=== PATIENT | male | born 1955 | race Caucasian/White ===

== ENCOUNTER 2018-01-02 11:44 | Emergency (ER) | payer OTHER, MEDICARE ==
[2018-01-02] MEDS ORDERED: BUMETANIDE2 M1 PO (12:38)
[2018-01-02] MEDS ORDERED: LISINOPRIL20 M1 PO (12:39)
[2018-01-02] MEDS ORDERED: SPIRONOLACTONE25 M1 PO (12:39)
[2018-01-02] MEDS ORDERED: DIGOXIN125 MCG PO (12:39)
[2018-01-02] MEDS ORDERED: CARVEDILOL25 M1 PO (12:40)
[2018-01-02] MEDS ORDERED: PREDNISONE5 M1 PO (12:40)
[2018-01-02] MEDS ORDERED: VENTOLIN HFA18 GM INH (12:41)
[2018-01-02] MEDS ORDERED: FLONASE ALLERG9.9 ML NAS (12:41)
[2018-01-02] MEDS ORDERED: SENNA8.6 M3 PO (12:42)
[2018-01-02] MEDS ORDERED: WARFARIN SODIUM5 M1 PO (12:42)
[2018-01-02] MEDS ORDERED: ULORIC40 M1 PO (12:42)
[2018-01-02] MEDS ORDERED: DOCUSATE SODIU100 M3 PO (12:43)
[2018-01-02] MEDS ORDERED: SYMBICORT 16010.2 GM INH (12:43)
[2018-01-02] MEDS ORDERED: DAILY MULTIPLE1 EACH PO (12:43)
--- NOTE | 2018-01-02 13:17 | ED GENERAL ADULT ---
History of Present Illness General Chief Complaint: Skin Rash/ Abcess Stated Complaint: BLISTERS ON LEG "THEY DECIDED TO EXPLODE" Source: patient, family Exam Limitations: no limitations Vital Signs & Intake/Output Vital Signs & Intake/Output Vital Signs Date Time Temp Pulse Resp B/P B/P Pulse O2 O2 Flow FiO2 Mean Ox Delivery Rate 01/02 1713 98.5 72 20 146/61 90 Room Air 01/02 1434 Room Air 01/02 1153 97.6 77 18 143/86 98 Room Air Allergies Coded Allergies: propofol (Severe, RASH 01/02/18) Reconcile Medications Albuterol Sulfate (Ventolin Hfa) 90 MCG HFA.AER.AD 2 PUF INH Q4-6 PRN PRN SHORTNESS OF BREATH (Reported) Budesonide/Formoterol Fumarate (Symbicort 160-4.5 Mcg Inhaler) 160 MCG-4.5 MCG/ ACTUATION HFA.AER.AD 2 PUF INH BID BREATHING PROBLEMS (Reported) Bumetanide 2 MG TABLET 1 TAB PO BID WATER RETENTION (Reported) Carvedilol 25 MG TABLET 1 TAB PO BID HEART (Reported) Clindamycin HCl (Cleocin HCl) 150 MG CAPSULE 3 CAP PO TID cellulitis Digoxin 125 MCG TABLET 1 TAB PO Q48 HEART (Reported) Docusate Sodium 100 MG CAPSULE 1 CAP PO BID CONSTIPATION (Reported) Febuxostat (Uloric) 40 MG TABLET 1 TAB PO DAILY GOUT (Reported) Fluticasone Propionate (Flonase Allergy Relief) 50 MCG/ACTUATION SPRAY.SUSP 1 SPRAY ESTELITA DAILY ALLERGIES (Reported) Lisinopril 20 MG TABLET 1 TAB PO DAILY HEART (Reported) Multivitamin (Daily Multiple Vitamin) 1 EACH TABLET 1 TAB PO DAILY VITAMIN SUPPORT (Reported) Prednisone 5 MG TABLET 1 TAB PO DAILY STEROID (Reported) Sennosides (Senna) 8.6 MG TABLET 2 TAB PO QPM CONSTIPATION (Reported) Spironolactone 25 MG TABLET 0.5 TAB PO DAILY WATER RETENTION (Reported) Warfarin Sodium 5 MG TABLET 1 TAB PO DAILY BLOOD THINNER (Reported) Triage Note: 62 YO MALE TO TRIAGE FOR EVAL OF NON-HEALING WOUNDS TO BILATERAL LEGS (L > R). REPORTS WAS ON OUTPATIENT ANTIBITOICS FOR CELLULITIS AND REPORTS WAS SUPPOSED TO F/U WITH PCP BUT PCP IS IN [place] AND THEY WERE UNABLE TO GET THERE, REPORTS MADE AN APPT WITH [facility] ON SATURDAY BUT REPORTS OVERNIGHT THE L WOUNDS "BURST" AND HAVE BEEN LEAKING CLEAR FLUID. AFEBRILE. Triage Nurses Notes Reviewed? yes Onset: Gradual Duration: week(s): Timing: constant HPI: 62-year-old male with a history of A. fib (on Coumadin), CHF, status post AICD placement, hypertension, hyperlipidemia, COPD, diabetes, CKD presenting with bilateral lower extremity wounds times 1 month, with L>R. Patient denies any direct trauma to the legs. States that he thinks he may have contracted poison betty that became infected. He was seen at an urgent care 2 weeks ago and started on clindamycin. States he was taking 300 mg 3 times daily times 7 days. He finished his course of antibiotics 1 week ago. He had mild improvement while on the antibiotics, but states the infection never completely resolved. Has had gradual worsening since he finished antibiotics. He has currently relocated to the area and his prior PMD was located and then very, states he has been unable to travel to [facility] for follow-up. Is currently in the process of establishing a PMD in the area. He also has an appointment with the wound center for Saturday, but presents to the emergency department today because he had 2 blisters on the left leg that opened up last night. Reports there was clear yellow drainage from the blisters. Denies fevers, nausea, vomiting. (Brooklyn Edouard) Past History Travel History Traveled to [place] past 21 day No Medical History Any Pertinent Medical History? see below for history Cardiovascular: AFIB, CHF, hypertension, hyperlipidemia, s/p AICD Respiratory: COPD Renal: chronic kidney disease Endocrine: diabetes Surgical History Surgical History: non-contributory Psychosocial History What is your primary language Egyptian Tobacco Use: Never used Family History Hx Contributory? No (Brooklyn Edouard) Review of Systems Review of Systems Constitutional: Reports: no symptoms. EENTM: Reports: no symptoms. Respiratory: Reports: no symptoms. Cardiovascular: Reports: no symptoms. GI: Reports: no symptoms. Genitourinary: Reports: no symptoms. Musculoskeletal: Reports: see HPI. Skin: Reports: see HPI. Neurological/Psychological: Reports: no symptoms. Hematologic/Endocrine: Reports: no symptoms. Immunologic/Allergic: Reports: no symptoms. All Other Systems: Reviewed and Negative (Brooklyn Edouard) Physical Exam Physical Exam General Appearance: well developed/nourished, no apparent distress, alert, awake Head: atraumatic, normal appearance Eyes: Bilateral: normal appearance. Neck: normal inspection Respiratory: normal breath sounds, lungs clear Cardiovascular: regular rate/rhythm Gastrointestinal: soft, non-tender Back: normal inspection Extremities: BLE edema and erythema with L > R. 2 open wounds to left leg. No purulent drainage. BLE are NV intacts. Able to bear weight and ambulate with a steady gait. Neurologic/Psych: awake, alert, oriented x 3, normal gait, normal mood/affect Core Measures ACS in differential dx? No CVA/TIA Diagnosis: No Sepsis Present: No Sepsis Focused Exam Completed? No (Brooklyn Edouard) Progress Differential Diagnoses I considered the following diagnoses in my evaluation of the patient: [ cellulitis vs abscess vs sepsis vs nec fasc vs DVT] Plan of Care: Orders Procedure Date/time Status Regular Diet 01/02 D Active PROTHROMBIN TIME 01/02 131 Complete LACTIC ACID 01/02 1315 Complete COMPREHENSIVE METABOLIC PANEL 01/02 131 Complete CBC WITHOUT DIFFERENTIAL 01/02 131 Complete Laboratory Tests 01/02/18 1615: Lactic Acid Cancelled 01/02/18 1429: PT 30.6 H, INR 2.78 H 01/02/18 1351: Anion Gap 5, Estimated GFR 41 L, BUN/Creatinine Ratio 25.3 H, Glucose 114 H, Lactic Acid 1.0, Calcium 8.5, Total Bilirubin 0.4, AST 28, ALT 44, Alkaline Phosphatase 39, Total Protein 6.0 L, Albumin 3.6, Globulin 2.4, Albumin/ Globulin Ratio 1.5, CBC w Diff NO MAN DIFF REQ, RBC 5.51, MCV 79.3 L, MCH 25.6 L, MCHC 32.3 L, RDW 21.5 H, MPV 8.6, Gran % 85.8 H, Lymphocytes % 7.0 L, Monocytes % 6.7, Eosinophils % 0.4, Basophils % 0.1, Absolute Granulocytes 7.7 H, Absolute Lymphocytes 0.6 L, Absolute Monocytes 0.6, Absolute Eosinophils 0, Absolute Basophils 0 US neg for DVT. Labs show normal WBC, but mild left shift. Also with kidney dysfunction. No priors for comparisons. Discussed with pt's nephrology office to comfirm this is his baseline kidney function. Last kidney function listed below: Dr. Jewell's office: Nov 2017 Creatinine 1.6 BUN 31 GFR 44 He is non toxic appearing with normal VS and no systemic symptoms. Given single dose IV clinda in ER. Will send home with appropriate dose of clinda for cellulitis (450mg TID), as he was under dosed by the urgent care. Wounds were debrided and dressed. Counseled on wound care and will follow up with the wound care clinic Saturday as scheduled. Given strict return precautions. Initial ED EKG: none (Brooklyn Edouard) Departure Departure Disposition: HOME OR SELF CARE Condition: Stable Clinical Impression Primary Impression: Cellulitis Referrals: Patient Has No Primary Care Dr (PCP/Family) Additional Instructions: Take clindamycin as prescribed. Follow up with the wound clinic on Saturday as scheduled. Return to the emergency department for any new or worsening symptoms. Departure Forms: Customer Survey General Discharge Information Prescriptions: Current Visit Scripts Clindamycin HCl (Cleocin HCl) 3 CAP PO TID #90 CAP (Brooklyn Edouard) PA/DAYCARE PROVIDER Co-Sign Statement Statement: ED Attending supervision documentation- [x] I saw and evaluated the patient. I have also reviewed all the pertinent lab results and diagnostic results. I agree with the findings and the plan of care as documented in the PA's/DAYCARE PROVIDER's documentation. [] I have reviewed the ED Record and agree with the PA's/DAYCARE PROVIDER's documentation. [] Additions or exceptions (if any) to the PAs/DAYCARE PROVIDER's note and plan are summarized below: [] (Zhou VEGA, Jorge) Critical Care Note Critical Care Note Critical Care Time: non-applicable (Brooklyn Edouard)
[2018-01-02 14:11] LABS: ABSOLUTE BASOPHIL COUNT 0 /CUMM (0.0-0.2); ABSOLUTE EOSINOPHIL COUNT 0 /CUMM (0.0-0.7); ABSOLUTE GRANULOCYTE CT 7.7 /CUMM (1.4-6.5); ABSOLUTE LYMPH COUNT 0.6 /CUMM (1.2-3.4); ABSOLUTE MONOCYTE COUNT 0.6 /CUMM (0.10-0.60); BASOPHIL % 0.1 % (0.0-2.0); EOSINOPHIL % 0.4 % (0-5); HEMATOCRIT 43.7 % (42-52); MEAN CORPUSCULAR HGB 25.6 PG (27.0-31.0); MEAN CORPUSCULAR HGB CONC 32.3 G/DL (33.0-37.0); MEAN CORPUSCULAR VOLUME 79.3 FL (80.0-94.0); MEAN PLATELET VOLUME 8.6 FL (7.4-10.4); PLATELET COUNT 193 /CUMM (130-400); RBC DISTRIBUTION WIDTH 21.5 % (11.5-14.5); RED BLOOD CELL CT 5.51 /CUMM (4.70-6.10)
[2018-01-02 14:29] LABS: GRANULOCYTE % 85.8 % (42.2-75.2)
[2018-01-02 14:49] LABS: PT 30.6 SEC (9.4-12.5)
--- NOTE | 2018-01-02 15:56 | ULTRASOUND REPORT ---
EXAMINATION: US TRIPLEX OF LOWER EXTREMITIES, BILATERAL CLINICAL INFORMATION: Edema. Swelling. Inflammation. Skin changes. Leg tenderness. Pitting edema. COMPARISON: None TECHNIQUE: Color-flow triplex imaging with spectral analysis and compression Doppler were performed on the lower extremities. FINDINGS: Respiratory variation, normal compression and augmented flow are noted throughout the lower extremities. The visualized common femoral vein, superficial femoral vein, profunda femoral vein, popliteal vein and midcalf peroneal and posterior tibial venous segments show no evidence of deep venous thrombosis. There is no Balderas's cyst. IMPRESSION: No evidence of deep venous thrombosis involving the bilateral lower extremities.
[2018-01-02] MEDS ORDERED: CLEOCIN HCL150 M1 PO (16:33)
[2018-01-02 17:13] VITALS: BP 146/61
== END 2018-01-02 17:14 ==
LOC: ERH 11:44
PROVIDERS: Physician Assistant
DX: L03.115 Cellulitis of right lower limb (principal); L03.116 Cellulitis of left lower limb; I48.91 Unspecified atrial fibrillation; I50.9 Heart failure, unspecified; I10 Essential (primary) hypertension; N18.9 Chronic kidney disease, unspecified; E11.9 Type 2 diabetes mellitus without complications
CPT/HCPCS: 93970; 96374